=== PATIENT | female | born 1965 | race Caucasian/White ===

== ENCOUNTER 2022-12-02 17:36 | Emergency (ER) | payer OTHER, SELFPAY ==
[2022-12-02] VITALS (46 sets, daily range): BP systolic 80–115; BP diastolic 49–80; PULSE 60–112; RESP 20–31; TEMP 36.6; O2SAT 84–100; BMI 20.8
--- NOTE | 2022-12-02 17:52 | ED_ITS ---
Documented by User: Howard Hanson 12/09/22 14:04 HPI - Altered Mental Status General Chief Complaint: Altered Mental Status Stated Complaint: Altered Mental Status Time Seen by Provider: 12/02/22 17:36 Source: caregiver Mode of arrival: ambulance Limitations: altered mental status and physical limitation History of Present Illness HPI narrative: the patient was brought in by EMS from the [facility], which she had been checked and is a patient less than twenty-four hours ago. She had been at [facility] for treatment after generalized weakness and some general decline. She was admitted 11/22/2022 and subsequently discharged yesterday to halfway at the [facility]. According to the report from [facility], the patient was confused tod ay, agitated, not following commands and eventually had decreased responsiveness, moaning and reaching out with her arms. EMS was contacted and brought the patient to our emergency department. EMS rep orted the patient's blood sugar was in the 40s therefore the patient started dextrose via IV. The patient is unable to give any kind of history of present illness or review of systems, to her altered mental state. recent medical history according to the chart at [facility] shows generalized weakness and was thought to be multifactorial in the setting of subarachnoid hemorrhage and acute hypokalemia. Hypokalemia secondary to poor dietary intake and hydrochlorothiazide use. Subarachnoid hemorrhage occurred after fall in 10/27/2022 but recent imaging at [facility] showed improvement. MRI of the brain with and without contrast as well as MRA of the head was obtained at [facility] along with neurological consultation. She had unintentional weight not loss and no acute cause can be identified during her return as hospitalization. Plans are made for outpatient EGD and colonoscopy with those have yet to be obtained. She also had hyponatremia which apparently is chronic. She has history of alcohol use and there was suggestion that she may suffer from hypokalemia as a result of that. Mild hypertension is chronic with previous use of lisinopril, hydrochlorothiazide, losartan. 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 Related Data Home Medications Medication Instructions Recorded Confirmed atorvastatin 40 mg tablet 40 mg PO DAILY 12/02/22 12/02/22 ciprofloxacin HCl 500 mg tablet 500 mg PO BID 12/02/22 12/02/22 esomeprazole magnesium 40 mg 40 mg PO DAILY 12/02/22 12/02/22 granules delayed release for susp (Nexium Packet) levothyroxine 150 mcg capsule 150 mcg PO DAILY 12/02/22 12/02/22 lisinopril 40 mg tablet 40 mg PO DAILY 12/02/22 12/02/22 losartan 100 1 tab PO DAILY 12/02/22 12/02/22 mg-hydrochlorothiazide 25 mg tablet metformin 500 mg 24 hr 500 mg PO DAILY 12/02/22 12/02/22 tablet,extended release ondansetron HCl 8 mg tablet 8 mg PO .EVERY 6 HR 12/02/22 12/02/22 potassium chloride 10 mEq 10 meq PO BID 12/02/22 12/02/22 capsule,extended release potassium chloride 20 mEq 40 meq PO BID 12/02/22 12/02/22 tablet,extended release rosuvastatin 20 mg tablet 20 mg PO DAILY 12/02/22 12/02/22 venlafaxine 225 mg tablet,extended 225 mg PO DAILY 12/02/22 12/02/22 release 24 hr Allergies Allergy/AdvReac Type Severity Reaction Status Date / Time Penicillins Allergy Severe Verified 12/02/22 18:13 Sulfa (Sulfonamide Allergy Severe Verified 12/02/22 18:13 Antibiotics) [facility] Medical History (Updated 12/02/22 @ 23:22 by Blayne Romeo MD) Alcohol abuse ?F10.10 - Alcohol abuse, uncomplicated (ICD-10) Amnesia ?R41.3 - Other amnesia (ICD-10) Asthma ?J45.909 - Unspecified asthma, uncomplicated (ICD-10) Dysuria ?R30.0 - Dysuria (ICD-10) GERD (gastroesophageal reflux disease) ?K21.9 - Gastro-esophageal reflux disease without esophagitis (ICD-10) 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, not elsewhere classified (ICD-10) ?K06.1 - Gingival enlargement (ICD-10) ?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, unspecified (ICD-10) Hyperlipemia ?E78.5 - Hyperlipidemia, unspecified (ICD-10) Hypersomnia ?G47.10 - Hypersomnia, unspecified (ICD-10) Hypertension ?I10 - Essential (primary) hypertension (ICD-10) Hypothyroid ?E03.9 - Hypothyroidism, unspecified (ICD-10) Iron deficiency anemia ?D50.9 - Iron deficiency anemia, unspecified (ICD-10) Loss of consciousness ?R40.20 - Unspecified coma (ICD-10) Major depress dis, severe ?F32.2 - Major depressive disorder, single episode, severe without psychotic features (ICD-10) Nausea ?R11.0 - Nausea (ICD-10) Nicotine dependence ?F17.200 - Nicotine dependence, unspecified, uncomplicated (ICD-10) Obesity ?E66.9 - Obesity, unspecified (ICD-10) Obstructive sleep apnea ?G47.33 - Obstructive sleep apnea (adult) (pediatric) (ICD-10) Postoperative malabsorption ?K91.2 - Postsurgical malabsorption, not elsewhere classified (ICD-10) Prediabetes ?R73.03 - Prediabetes (ICD-10) Traumatic subarachnoid hemorrhage ?S06.6XAA - Traumatic subarachnoid hemorrhage with loss of consciousness status unknown, initial encounter (ICD-10) Weakness ?R53.1 - Weakness (ICD-10) Exam Narrative Exam Narrative: Nurses notes and vital signs reviewed and patient is not hypoxic. afebrile General: Ill-appearing and mildly distressed, moaning. Skin: Warm, dry, no pallor noted. scabbed area of the right upper chest. Ecchymosis in other areas of the chest. Head: Normocephalic, atraumatic. Neck: Supple, non-tender. Eye: Pupils are equal, round and EOMI. No scleral icterus. Ears, Nose, Mouth, and Throat: Oral mucosa is dry Cardiovascular: borderline bradycardia, sinus, without murmur, gallop or rub. Respiratory: No accessory muscle use or respiratory distress. Lungs are clear to auscultation, no wheezing, rales or rhonchi Chest Wall: right upper anterior chest wall abrasion as detailed above. Back: No midline thoracic or lumbar vertebral tenderness or ecchymosis. Musculoskeletal: no sign of long bone fracture. No pain with hip or pelvic palpation. No lower extremity edema/swelling GI: Abdomen is soft, non-distended. Normal bowel sounds. No masses appreciated. No reaction to palpation of the abdomen. No guarding, or rigidity noted. Neurological: Keeps eyes closed. Moans and cries. Does not answer questions or follow commands. Moves all extremities spontaneously. Sensation intact. Psychiatric: non-interactive. Constitutional Vital Signs, click to edit/add: Last Vital Signs Temp 97.9 F 12/02/22 18:06 Pulse 92 H 12/03/22 00:10 Resp 29 H 12/03/22 00:10 BP 97/71 12/03/22 00:01 Pulse Ox 96 12/03/22 00:14 O2 Del Method Room Air 12/02/22 18:05 Course Vital Signs Vital signs: Vital Signs Pulse Rate 60 12/02/22 17:38 Respiratory Rate 26 H 12/02/22 17:38 Blood Pressure 89/65 12/02/22 17:38 Pulse Oximetry 98 12/02/22 17:38 Oxygen Delivery Method Room Air 12/02/22 17:38 Temperature 97.9 F 12/02/22 18:06 Pulse Rate 92 H 12/03/22 00:10 Respiratory Rate 29 H 12/03/22 00:10 Blood Pressure 97/71 12/03/22 00:01 Pulse Oximetry 96 12/03/22 00:14 Oxygen Delivery Method Room Air 12/02/22 18:05 MDM - Altered Mental Status Lab Data Labs: Lab Results 12/02/22 12/02/22 12/02/22 Range/Units 17:53 18:15 18:19 WBC 8.3 (4.0-11.0) 10^3/uL RBC 2.33 L (4.20-5.40) 10^6/uL Hgb 7.8 L (12.0-16.0) g/dL Hct 24.3 L (36.0-48.0) % MCV 104.3 H (81.0-99.0) fL MCH 33.5 (26.7-34.0) pg MCHC 32.1 (29.9-35.2) g/dL RDW 20.9 H (11.0-15.0) % Plt Count 142 L (150-450) 10^3/uL MPV 11.4 (9.5-13.5) fL Neut % (Auto) 83.5 H (43.0-75.0) % Lymph % (Auto) 9.5 L (20.5-60.0) % [place] % (Auto) 4.9 (1.7-12.0) % Eos % (Auto) 0.1 L (0.9-7.0) % Baso % (Auto) 0.2 (0.2-2.0) % Neut # (Auto) 6.9 H (1.4-6.5) 10^3/uL Lymph # (Auto) 0.8 L (1.2-3.8) 10^3/uL [place] # (Auto) 0.4 (0.3-0.8) 10^3/uL Eos # (Auto) 0.0 (0.0-0.7) 10^3/uL Baso # (Auto) 0.0 (0.0-0.1) 10^3/uL Abs Immat Gran (auto) 0.15 H (0.00-0.03) 10^3/uL Imm/Tot Granulo (auto) 1.8 H (0.0-0.5) % PT 16.0 H (9.0-11.6) sec INR 1.55 Sodium 131 L (136-145) mmol/L Potassium 6.3 H* (3.5-5.1) mmol/L Chloride 103 (98-107) mmol/L Carbon Dioxide 19.9 L (21.0-32.0) mmol/L Anion Gap 14.4 BUN 17.0 (7.0-18.0) mg/dL Creatinine 3.94 H (0.55-1.02) mg/dL Est GFR ( Amer) 14 L (>=60) Est GFR (Non-Af Amer) 12 L (>=60) BUN/Creatinine Ratio 4.3 Glucose 279 H (74-106) mg/dL Lactate 4.0 H* (0.4-2.0) mmol/L Calcium 7.5 L (8.5-10.1) mg/dL Magnesium 1.7 L (1.8-2.4) mg/dL Total Bilirubin 3.7 H (0.2-1.0) mg/dL AST 331 H (15-37) U/L ALT 134 H (14-59) U/L Alkaline Phosphatase 277 H (46-116) U/L Ammonia 43 H* (11-32) umol/L Total Protein 4.0 L (6.4-8.2) g/dL Albumin 1.3 L (3.4-5.0) g/dL Globulin 2.7 g/dL Albumin/Globulin Ratio 0.5 TSH 0.230 L (0.358-3.740) uIU/mL Urine Color (YELLOW) Urine Clarity (CLEAR) Urine pH (5.0-9.0) Ur Specific [place] (1.005-1.025) Urine Protein (NEG/TRACE) mg/dL Urine Glucose (UA) (NEGATIVE) mg/dL Urine Ketones (NEGATIVE) mg/dL Urine Occult Blood (NEGATIVE) Urine Nitrite (NEGATIVE) Urine Bilirubin (NEGATIVE) Urine Urobilinogen (0.2-1.0) EU/dL Ur Leukocyte Esterase (NEGATIVE) Urine RBC (0-2) #/HPF Urine WBC (NONE SEEN) #/HPF Ur Squamous Epith Cells (NONE/RARE) #/LPF Urine Crystals (None Seen) #/HPF Amorphous Sediment Urine Bacteria (NONE SEEN) #/HPF Urine Casts (NONE SEEN) #/LPF Fatty Casts Urine Mucus (NONE SEEN) Ur Culture Indicated? Acetaminophen 4.4 L (10.0-30.0) ug/mL Acetone, Qual Negative (NEGATIVE) SARS-CoV-2 (PCR) Negative (NEGATIVE) SARS-CoV-2 RNA (BRYAN) Not detected (NOT DETECTE) POC Glucose 93 (74-106) mg/dL 12/02/22 12/02/22 Range/Units 20:25 21:11 WBC (4.0-11.0) 10^3/uL RBC (4.20-5.40) 10^6/uL Hgb (12.0-16.0) g/dL Hct (36.0-48.0) % MCV (81.0-99.0) fL MCH (26.7-34.0) pg MCHC (29.9-35.2) g/dL RDW (11.0-15.0) % Plt Count (150-450) 10^3/uL MPV (9.5-13.5) fL Neut % (Auto) (43.0-75.0) % Lymph % (Auto) (20.5-60.0) % [place] % (Auto) (1.7-12.0) % Eos % (Auto) (0.9-7.0) % Baso % (Auto) (0.2-2.0) % Neut # (Auto) (1.4-6.5) 10^3/uL Lymph # (Auto) (1.2-3.8) 10^3/uL [place] # (Auto) (0.3-0.8) 10^3/uL Eos # (Auto) (0.0-0.7) 10^3/uL Baso # (Auto) (0.0-0.1) 10^3/uL Abs Immat Gran (auto) (0.00-0.03) 10^3/uL Imm/Tot Granulo (auto) (0.0-0.5) % PT (9.0-11.6) sec INR Sodium 132 L (136-145) mmol/L Potassium 5.2 H (3.5-5.1) mmol/L Chloride 106 (98-107) mmol/L Carbon Dioxide 11.8 L (21.0-32.0) mmol/L Anion Gap 19.4 BUN 17.0 (7.0-18.0) mg/dL Creatinine 4.18 H (0.55-1.02) mg/dL Est GFR ( Amer) 13 L (>=60) Est GFR (Non-Af Amer) 11 L (>=60) BUN/Creatinine Ratio 4.1 Glucose 312 H (74-106) mg/dL Lactate 8.2 H* (0.4-2.0) mmol/L Calcium 7.5 L (8.5-10.1) mg/dL Magnesium (1.8-2.4) mg/dL Total Bilirubin (0.2-1.0) mg/dL AST (15-37) U/L ALT (14-59) U/L Alkaline Phosphatase (46-116) U/L Ammonia (11-32) umol/L Total Protein (6.4-8.2) g/dL Albumin (3.4-5.0) g/dL Globulin g/dL Albumin/Globulin Ratio TSH (0.358-3.740) uIU/mL Urine Color Dk. orange (YELLOW) Urine Clarity Clear (CLEAR) Urine pH 6.5 (5.0-9.0) Ur Specific [place] 1.025 (1.005-1.025) Urine Protein >=300 A (NEG/TRACE) mg/dL Urine Glucose (UA) 100 A (NEGATIVE) mg/dL Urine Ketones Trace A (NEGATIVE) mg/dL Urine Occult Blood Large A (NEGATIVE) Urine Nitrite Positive A (NEGATIVE) Urine Bilirubin Large A (NEGATIVE) Urine Urobilinogen 2.0 A (0.2-1.0) EU/dL Ur Leukocyte Esterase Trace A (NEGATIVE) Urine RBC 0-2 (0-2) #/HPF Urine WBC 5-10 A (NONE SEEN) #/HPF Ur Squamous Epith Cells Many A (NONE/RARE) #/LPF Urine Crystals Seen A (None Seen) #/HPF Amorphous Sediment Many Urine Bacteria Large A (NONE SEEN) #/HPF Urine Casts Seen A (NONE SEEN) #/LPF Fatty Casts Rare Urine Mucus Large A (NONE SEEN) Ur Culture Indicated? Yes Acetaminophen (10.0-30.0) ug/mL Acetone, Qual (NEGATIVE) SARS-CoV-2 (PCR) (NEGATIVE) SARS-CoV-2 RNA (BRYAN) (NOT DETECTE) POC Glucose (74-106) mg/dL Discharge Plan Discharge Chief Complaint: Altered Mental Status Clinical Impression: Acute kidney injury, Hepatic encephalopathy Patient Disposition: [facility] Time of Disposition Decision: 23:21 Discharge Location: [facility] Condition: Fair Mode of Transportation: EMS Discharge Date/Time: 12/03/22 00:25 Documented by User: Blayne Romeo MD 12/02/22 23:22 HPI - Altered Mental Status General Chief Complaint: Altered Mental Status Stated Complaint: Altered Mental Status Time Seen by Provider: 12/02/22 17:36 Related Data Home Medications Medication Instructions Recorded Confirmed atorvastatin 40 mg tablet 40 mg PO DAILY 12/02/22 12/02/22 ciprofloxacin HCl 500 mg tablet 500 mg PO BID 12/02/22 12/02/22 esomeprazole magnesium 40 mg 40 mg PO DAILY 12/02/22 12/02/22 granules delayed release for susp (Nexium Packet) levothyroxine 150 mcg capsule 150 mcg PO DAILY 12/02/22 12/02/22 lisinopril 40 mg tablet 40 mg PO DAILY 12/02/22 12/02/22 losartan 100 1 tab PO DAILY 12/02/22 12/02/22 mg-hydrochlorothiazide 25 mg tablet metformin 500 mg 24 hr 500 mg PO DAILY 12/02/22 12/02/22 tablet,extended release ondansetron HCl 8 mg tablet 8 mg PO .EVERY 6 HR 12/02/22 12/02/22 potassium chloride 10 mEq 10 meq PO BID 12/02/22 12/02/22 capsule,extended release potassium chloride 20 mEq 40 meq PO BID 12/02/22 12/02/22 tablet,extended release rosuvastatin 20 mg tablet 20 mg PO DAILY 12/02/22 12/02/22 venlafaxine 225 mg tablet,extended 225 mg PO DAILY 12/02/22 12/02/22 release 24 hr Allergies Allergy/AdvReac Type Severity Reaction Status Date / Time Penicillins Allergy Severe Verified 12/02/22 18:13 Sulfa (Sulfonamide Allergy Severe Verified 12/02/22 18:13 Antibiotics) [facility] Medical History (Updated 12/02/22 @ 23:22 by Blayne Romeo MD) Alcohol abuse ?F10.10 - Alcohol abuse, uncomplicated (ICD-10) Amnesia ?R41.3 - Other amnesia (ICD-10) Asthma ?J45.909 - Unspecified asthma, uncomplicated (ICD-10) Dysuria ?R30.0 - Dysuria (ICD-10) GERD (gastroesophageal reflux disease) ?K21.9 - Gastro-esophageal reflux disease without esophagitis (ICD-10) 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, not elsewhere classified (ICD-10) ?K06.1 - Gingival enlargement (ICD-10) ?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, unspecified (ICD-10) Hyperlipemia ?E78.5 - Hyperlipidemia, unspecified (ICD-10) Hypersomnia ?G47.10 - Hypersomnia, unspecified (ICD-10) Hypertension ?I10 - Essential (primary) hypertension (ICD-10) Hypothyroid ?E03.9 - Hypothyroidism, unspecified (ICD-10) Iron deficiency anemia ?D50.9 - Iron deficiency anemia, unspecified (ICD-10) Loss of consciousness ?R40.20 - Unspecified coma (ICD-10) Major depress dis, severe ?F32.2 - Major depressive disorder, single episode, severe without psychotic features (ICD-10) Nausea ?R11.0 - Nausea (ICD-10) Nicotine dependence ?F17.200 - Nicotine dependence, unspecified, uncomplicated (ICD-10) Obesity ?E66.9 - Obesity, unspecified (ICD-10) Obstructive sleep apnea ?G47.33 - Obstructive sleep apnea (adult) (pediatric) (ICD-10) Postoperative malabsorption ?K91.2 - Postsurgical malabsorption, not elsewhere classified (ICD-10) Prediabetes ?R73.03 - Prediabetes (ICD-10) Traumatic subarachnoid hemorrhage ?S06.6XAA - Traumatic subarachnoid hemorrhage with loss of consciousness status unknown, initial encounter (ICD-10) Weakness ?R53.1 - Weakness (ICD-10) Exam Constitutional Vital Signs, click to edit/add: Last Vital Signs Temp 97.9 F 12/02/22 18:06 Pulse 92 H 12/03/22 00:10 Resp 29 H 12/03/22 00:10 BP 97/71 12/03/22 00:01 Pulse Ox 96 12/03/22 00:14 O2 Del Method Room Air 12/02/22 18:05 Course Vital Signs Vital signs: Vital Signs Pulse Rate 60 12/02/22 17:38 Respiratory Rate 26 H 12/02/22 17:38 Blood Pressure 89/65 12/02/22 17:38 Pulse Oximetry 98 12/02/22 17:38 Oxygen Delivery Method Room Air 12/02/22 17:38 Temperature 97.9 F 12/02/22 18:06 Pulse Rate 92 H 12/03/22 00:10 Respiratory Rate 29 H 12/03/22 00:10 Blood Pressure 97/71 12/03/22 00:01 Pulse Oximetry 96 12/03/22 00:14 Oxygen Delivery Method Room Air 12/02/22 18:05 MDM - Altered Mental Status MDM Narrative Medical decision making narrative: JK 11:20 pm her workup shows a significantly elevated creatinine. Her ammonia level is in the mid 40s. CAT scan shows no bleed and chest x-ray shows no infiltrate. She's had minimal urine output and is covered with IV Rocephin here. I've spoken to admitting service at [facility] and the patient is accepted there and is being transported there tonight. She is hemodynamically stable and family is agreeable for transfer. Differential Diagnosis Differential diagnosis: Likely altered mental status, hypoglycemia, subarachnoid hemorrhage and OTHER (hepatic encephalopathy, urinary tract infection) Lab Data Attestation: I reviewed the patient's lab results. Labs: Lab Results 12/02/22 12/02/22 12/02/22 Range/Units 17:53 18:15 18:19 WBC 8.3 (4.0-11.0) 10^3/uL RBC 2.33 L (4.20-5.40) 10^6/uL Hgb 7.8 L (12.0-16.0) g/dL Hct 24.3 L (36.0-48.0) % MCV 104.3 H (81.0-99.0) fL MCH 33.5 (26.7-34.0) pg MCHC 32.1 (29.9-35.2) g/dL RDW 20.9 H (11.0-15.0) % Plt Count 142 L (150-450) 10^3/uL MPV 11.4 (9.5-13.5) fL Neut % (Auto) 83.5 H (43.0-75.0) % Lymph % (Auto) 9.5 L (20.5-60.0) % [place] % (Auto) 4.9 (1.7-12.0) % Eos % (Auto) 0.1 L (0.9-7.0) % Baso % (Auto) 0.2 (0.2-2.0) % Neut # (Auto) 6.9 H (1.4-6.5) 10^3/uL Lymph # (Auto) 0.8 L (1.2-3.8) 10^3/uL [place] # (Auto) 0.4 (0.3-0.8) 10^3/uL Eos # (Auto) 0.0 (0.0-0.7) 10^3/uL Baso # (Auto) 0.0 (0.0-0.1) 10^3/uL Abs Immat Gran (auto) 0.15 H (0.00-0.03) 10^3/uL Imm/Tot Granulo (auto) 1.8 H (0.0-0.5) % PT 16.0 H (9.0-11.6) sec INR 1.55 Sodium 131 L (136-145) mmol/L Potassium 6.3 H* (3.5-5.1) mmol/L Chloride 103 (98-107) mmol/L Carbon Dioxide 19.9 L (21.0-32.0) mmol/L Anion Gap 14.4 BUN 17.0 (7.0-18.0) mg/dL Creatinine 3.94 H (0.55-1.02) mg/dL Est GFR ( Amer) 14 L (>=60) Est GFR (Non-Af Amer) 12 L (>=60) BUN/Creatinine Ratio 4.3 Glucose 279 H (74-106) mg/dL Lactate 4.0 H* (0.4-2.0) mmol/L Calcium 7.5 L (8.5-10.1) mg/dL Magnesium 1.7 L (1.8-2.4) mg/dL Total Bilirubin 3.7 H (0.2-1.0) mg/dL AST 331 H (15-37) U/L ALT 134 H (14-59) U/L Alkaline Phosphatase 277 H (46-116) U/L Ammonia 43 H* (11-32) umol/L Total Protein 4.0 L (6.4-8.2) g/dL Albumin 1.3 L (3.4-5.0) g/dL Globulin 2.7 g/dL Albumin/Globulin Ratio 0.5 TSH 0.230 L (0.358-3.740) uIU/mL Urine Color (YELLOW) Urine Clarity (CLEAR) Urine pH (5.0-9.0) Ur Specific [place] (1.005-1.025) Urine Protein (NEG/TRACE) mg/dL Urine Glucose (UA) (NEGATIVE) mg/dL Urine Ketones (NEGATIVE) mg/dL Urine Occult Blood (NEGATIVE) Urine Nitrite (NEGATIVE) Urine Bilirubin (NEGATIVE) Urine Urobilinogen (0.2-1.0) EU/dL Ur Leukocyte Esterase (NEGATIVE) Urine RBC (0-2) #/HPF Urine WBC (NONE SEEN) #/HPF Ur Squamous Epith Cells (NONE/RARE) #/LPF Urine Crystals (None Seen) #/HPF Amorphous Sediment Urine Bacteria (NONE SEEN) #/HPF Urine Casts (NONE SEEN) #/LPF Fatty Casts Urine Mucus (NONE SEEN) Ur Culture Indicated? Acetaminophen 4.4 L (10.0-30.0) ug/mL Acetone, Qual Negative (NEGATIVE) SARS-CoV-2 (PCR) Negative (NEGATIVE) SARS-CoV-2 RNA (BRYAN) Not detected (NOT DETECTE) POC Glucose 93 (74-106) mg/dL 12/02/22 12/02/22 Range/Units 20:25 21:11 WBC (4.0-11.0) 10^3/uL RBC (4.20-5.40) 10^6/uL Hgb (12.0-16.0) g/dL Hct (36.0-48.0) % MCV (81.0-99.0) fL MCH (26.7-34.0) pg MCHC (29.9-35.2) g/dL RDW (11.0-15.0) % Plt Count (150-450) 10^3/uL MPV (9.5-13.5) fL Neut % (Auto) (43.0-75.0) % Lymph % (Auto) (20.5-60.0) % [place] % (Auto) (1.7-12.0) % Eos % (Auto) (0.9-7.0) % Baso % (Auto) (0.2-2.0) % Neut # (Auto) (1.4-6.5) 10^3/uL Lymph # (Auto) (1.2-3.8) 10^3/uL [place] # (Auto) (0.3-0.8) 10^3/uL Eos # (Auto) (0.0-0.7) 10^3/uL Baso # (Auto) (0.0-0.1) 10^3/uL Abs Immat Gran (auto) (0.00-0.03) 10^3/uL Imm/Tot Granulo (auto) (0.0-0.5) % PT (9.0-11.6) sec INR Sodium 132 L (136-145) mmol/L Potassium 5.2 H (3.5-5.1) mmol/L Chloride 106 (98-107) mmol/L Carbon Dioxide 11.8 L (21.0-32.0) mmol/L Anion Gap 19.4 BUN 17.0 (7.0-18.0) mg/dL Creatinine 4.18 H (0.55-1.02) mg/dL Est GFR ( Amer) 13 L (>=60) Est GFR (Non-Af Amer) 11 L (>=60) BUN/Creatinine Ratio 4.1 Glucose 312 H (74-106) mg/dL Lactate 8.2 H* (0.4-2.0) mmol/L Calcium 7.5 L (8.5-10.1) mg/dL Magnesium (1.8-2.4) mg/dL Total Bilirubin (0.2-1.0) mg/dL AST (15-37) U/L ALT (14-59) U/L Alkaline Phosphatase (46-116) U/L Ammonia (11-32) umol/L Total Protein (6.4-8.2) g/dL Albumin (3.4-5.0) g/dL Globulin g/dL Albumin/Globulin Ratio TSH (0.358-3.740) uIU/mL Urine Color Dk. orange (YELLOW) Urine Clarity Clear (CLEAR) Urine pH 6.5 (5.0-9.0) Ur Specific [place] 1.025 (1.005-1.025) Urine Protein >=300 A (NEG/TRACE) mg/dL Urine Glucose (UA) 100 A (NEGATIVE) mg/dL Urine Ketones Trace A (NEGATIVE) mg/dL Urine Occult Blood Large A (NEGATIVE) Urine Nitrite Positive A (NEGATIVE) Urine Bilirubin Large A (NEGATIVE) Urine Urobilinogen 2.0 A (0.2-1.0) EU/dL Ur Leukocyte Esterase Trace A (NEGATIVE) Urine RBC 0-2 (0-2) #/HPF Urine WBC 5-10 A (NONE SEEN) #/HPF Ur Squamous Epith Cells Many A (NONE/RARE) #/LPF Urine Crystals Seen A (None Seen) #/HPF Amorphous Sediment Many Urine Bacteria Large A (NONE SEEN) #/HPF Urine Casts Seen A (NONE SEEN) #/LPF Fatty Casts Rare Urine Mucus Large A (NONE SEEN) Ur Culture Indicated? Yes Acetaminophen (10.0-30.0) ug/mL Acetone, Qual (NEGATIVE) SARS-CoV-2 (PCR) (NEGATIVE) SARS-CoV-2 RNA (BRYAN) (NOT DETECTE) POC Glucose (74-106) mg/dL Imaging Data chest x-ray, CT brain: Radiologist's impression: Procedure: CT head/brain wo con CLINICAL HISTORY: Altered mentation, hx subarachnoid hemorrhage. EXAMINATION: Unenhanced CT scan of the brain: 12/02/2022. COMPARISON: None. TECHNIQUE: 3 mm axial images from skull base through vertex without intravenous contrast were obtained. Sagittal and coronal reconstructions were also performed. FINDINGS: The ventricles, sulcal, cisternal spaces seem minimally prominent. However, there is no mass, mass effect, or midline shift. There are mild to moderate chronic microvascular ischemic changes surrounding the ventricles. There is no acute infarct. There is no intra- or extra-axial hemorrhage. There is no mass, mass effect, or midline shift. The visualized intraorbital contents, paranasal sinuses, mastoid air cells appear normal. IMPRESSION: 1. No acute infarct, hemorrhage, or acute intracranial process to explain patient's symptoms. 2. Mild atrophic, mild to moderate chronic microvascular ischemic changes. Electronically authenticated by: ALINA LLANOS Date: 12/02/2022 19: Procedure: XR chest 1V EXAMINATION: XR chest 1V HISTORY: Altered mental status COMPARISON: None. TECHNIQUE: Portable chest FINDINGS: The lung parenchyma is free of consolidation or infiltrate. No pneumothorax or pleural effusion. The cardiac, mediastinal and hilar contours are normal. The visualized osseous structures exhibit no gross abnormality. IMPRESSION: No acute cardiopulmonary abnormality. Electronically authenticated by: FROILAN MATTHEW Date: 12/02/2022 18:53 Discharge Plan Discharge Chief Complaint: Altered Mental Status Clinical Impression: Acute kidney injury, Hepatic encephalopathy Patient Disposition: [facility] Time of Disposition Decision: 23:21 Discharge Location: [facility] Condition: Fair Mode of Transportation: EMS Discharge Date/Time: 12/03/22 00:25
--- NOTE | 2022-12-02 17:52 | CT_ITS ---
The [address] [address] [id number] date: 1965 Sex: F Assigned Patient Location: ER Current Patient Location: ER Accession/Order Number: [id number] Exam Date: 12/02/2022 18:25 Report Date: 12/02/2022 19:59 At the request of: TORO BRIGGS Procedure: CT head/brain wo con CLINICAL HISTORY: Altered mentation, hx subarachnoid hemorrhage. EXAMINATION: Unenhanced CT scan of the brain: 12/02/2022. COMPARISON: None. TECHNIQUE: 3 mm axial images from skull base through vertex without intravenous contrast were obtained. Sagittal and coronal reconstructions were also performed. FINDINGS: The ventricles, sulcal, cisternal spaces seem minimally prominent. However, there is no mass, mass effect, or midline shift. There are mild to moderate chronic microvascular ischemic changes surrounding the ventricles. There is no acute infarct. There is no intra- or extra-axial hemorrhage. There is no mass, mass effect, or midline shift. The visualized intraorbital contents, paranasal sinuses, mastoid air cells appear normal. CT/CT head/brain wo con IMPRESSION: 1. No acute infarct, hemorrhage, or acute intracranial process to explain patient's symptoms. 2. Mild atrophic, mild to moderate chronic microvascular ischemic changes. Electronically authenticated by: ALINA LLANOS Date: 12/02/2022 19:59
[2022-12-02 17:54] LABS: Glucometer 93 mg/dL (74-106)
--- NOTE | 2022-12-02 17:57 | XR_ITS ---
The [address] [address] Patient Name: TERRI HOWELL MRN: [id number] date: 1965 Sex: F Assigned Patient Location: ER Current Patient Location: ER Accession/Order Number: [id number] Exam Date: 12/02/2022 18:25 Report Date: 12/02/2022 18:53 At the request of: TORO BRIGGS Procedure: XR chest 1V EXAMINATION: XR chest 1V HISTORY: Altered mental status COMPARISON: None. TECHNIQUE: Portable chest FINDINGS: The lung parenchyma is free of consolidation or infiltrate. No pneumothorax or pleural effusion. The cardiac, mediastinal and hilar contours are normal. The visualized osseous structures exhibit no gross abnormality. XR/XR chest 1V IMPRESSION: No acute cardiopulmonary abnormality. Electronically authenticated by: FROILAN MATTHEW Date: 12/02/2022 18:53
--- NOTE | 2022-12-02 18:34 | PC.NURSE ---
To CT at this time.
[2022-12-02 18:36] LABS: Basophils Percent Auto 0.2 % (0.2-2.0); Eosinophils Percent Auto 0.1 % (0.9-7.0); Hematocrit 24.3 % (36.0-48.0); Hemoglobin 7.8 g/dL (12.0-16.0); Immature Granulocytes Abs Auto 0.15 10^3/uL (0.00-0.03); Immature Granulocytes Pct Auto 1.8 % (0.0-0.5); Lymphocytes Absolute Auto 0.8 10^3/uL (1.2-3.8); Lymphocytes Percent Auto 9.5 % (20.5-60.0); Mean Corpuscular HGB Conc 32.1 g/dL (29.9-35.2); Mean Corpuscular Hemoglobin 33.5 pg (26.7-34.0); Mean Corpuscular Volume 104.3 fL (81.0-99.0); Mean Platelet Volume 11.4 fL (9.5-13.5); Monocytes Absolute Auto 0.4 10^3/uL (0.3-0.8); Monocytes Percent Auto 4.9 % (1.7-12.0); Neutrophils Absolute Auto 6.9 10^3/uL (1.4-6.5); Neutrophils Percent Auto 83.5 % (43.0-75.0); Platelet Count 142 10^3/uL (150-450); Red Blood Count 2.33 10^6/uL (4.20-5.40); Red Cell Distribution Width 20.9 % (11.0-15.0); White Blood Count 8.3 10^3/uL (4.0-11.0)
--- NOTE | 2022-12-02 18:37 | PC.NURSE ---
Returns form CT at this time.
[2022-12-02] MEDS: MULTIVIT INFUSN,ADULT 4,VIT K 10 ML, FOLIC ACID 1 MG, THIAMINE HCL 100 MG in DEXTROSE 5... 1000 ML IV (18:41)
[2022-12-02 18:51] LABS: Acetone NEGATIVE (NEGATIVE)
--- NOTE | 2022-12-02 18:51 | PC.NURSE ---
Mother and Father at bedside and updated on condition.
[2022-12-02 18:54] LABS: SARS-CoV-2 Ag NEGATIVE (NEGATIVE)
[2022-12-02 19:04] LABS: Acetaminophen 4.4 ug/mL (10.0-30.0); Alanine Aminotransferase 134 U/L (14-59); Albumin Globulin Ratio 0.5; Albumin Level 1.3 g/dL (3.4-5.0); Alkaline Phosphatase 277 U/L (46-116); Anion Gap 14.4; Aspartate Amino Transferase 331 U/L (15-37); BUN Creatinine Ratio 4.3; Bilirubin Total 3.7 mg/dL (0.2-1.0); Calcium 7.5 mg/dL (8.5-10.1); Carbon Dioxide 19.9 mmol/L (21.0-32.0); Chloride 103 mmol/L (98-107); Estimated GFR (African America 14 (>=60); Estimated GFR (Non-African Ame 12 (>=60); Globulin 2.7 g/dL; Glucose 279 mg/dL (74-106); Magnesium 1.7 mg/dL (1.8-2.4); Sodium 131 mmol/L (136-145)
[2022-12-02 19:06] LABS: Ammonia 43 umol/L (11-32); Potassium 6.3 mmol/L (3.5-5.1)
[2022-12-02 19:15] LABS: INR 1.55
[2022-12-02] MEDS: DEXTROSE 50 %-WATER 25 GM/50 ML SYRINGE IV (19:52)
[2022-12-02] MEDS: INSULIN REGULAR 300 UNITS/3 ML 10 UNIT IV (19:52)
[2022-12-02] MEDS: 0.9 % SODIUM CHLORIDE 1,000 ML 200 ML IV (20:05)
[2022-12-02] MEDS: CEFTRIAXONE 1,000 MG in 0.9 % SODIUM CHLORIDE 50 ML 100 MG IV (20:26)
[2022-12-02 20:38] LABS: Bilirubin Urine LARGE (NEGATIVE); Blood Urine LARGE (NEGATIVE); Clarity Urine CLEAR (CLEAR); Color Urine DK. ORANGE (YELLOW); Glucose Urine UA 100 mg/dL (NEGATIVE); Ketones Urine TRACE mg/dL (NEGATIVE); Leukocyte Esterase Urine TRACE (NEGATIVE); Nitrite Urine POSITIVE (NEGATIVE); Protein Urine >=300 mg/dL (NEG/TRACE); Specific Gravity Urine 1.025 (1.005-1.025); Urine Microscopic Indicated YES; pH Urine 6.5 (5.0-9.0)
[2022-12-02 20:48] LABS: Amorphous Sediment Urine MANY; Bacteria Urine LARGE #/HPF (NONE SEEN); Cast Seen? SEEN #/LPF (NONE SEEN); Crystals Seen? Seen #/HPF (None Seen); Fatty Casts Urine RARE; Mucus Urine LARGE (NONE SEEN); RBC Urine 0-2 #/HPF (0-2); Squamous Epithelial Cell Urine MANY #/LPF (NONE/RARE)
[2022-12-02 20:49] LABS: Urine Culture Indicated YES
[2022-12-02 21:44] LABS: Anion Gap 19.4; BUN Creatinine Ratio 4.1; Calcium 7.5 mg/dL (8.5-10.1); Carbon Dioxide 11.8 mmol/L (21.0-32.0); Chloride 106 mmol/L (98-107); Estimated GFR (African America 13 (>=60); Estimated GFR (Non-African Ame 11 (>=60); Glucose 312 mg/dL (74-106); Potassium 5.2 mmol/L (3.5-5.1); Sodium 132 mmol/L (136-145)
[2022-12-02 21:53] LABS: Lactate/Lactic Acid 8.2 mmol/L (0.4-2.0)
--- NOTE | 2022-12-02 23:52 | ECG_ITS ---
The [facility] Test Date: 2022-12-02 Pat Name: TERRI BARAJAS Department: Room: - Gender: Female Resident Assistant: : 1965 Requested By: [id number] Order Number: [id number] Reading MD: MERCY TORRES Measurements Intervals [place] Rate: 92 P: 49 DE: 152 QRS: 67 QRSD: 94 T: 55 QT: 358 QTc: 407 Interpretive Statements 1100 Sinus rhythm 1470 with occasional supraventricular premature complexes 9140 abnormal rhythm ECG No previous ECG available for comparison Electronically Signed On 12-04-2022 7:00:01 EDT by MERCY TORRES
[2022-12-03] VITALS: PULSE 92; RESP 34
[2022-12-03 00:01] VITALS: BP 97/71; PULSE 93; RESP 24
[2022-12-03 00:10] VITALS: PULSE 92; RESP 29; O2SAT 89
[2022-12-03 00:14] VITALS: O2SAT 96
[2022-12-04 10:16] LABS: SARS-CoV-2 NAA NOT DETECTED (NOT DETECTE)
== END 2022-12-03 00:25 | disposition short-term general hospital (02) ==
PROVIDERS: Emergency Medicine; Emergency Provider Emergency Medicine
DX: N17.9 Acute kidney failure, unspecified (principal); K76.82 Hepatic encephalopathy; F10.10 Alcohol abuse, uncomplicated; J45.909 Unspecified asthma, uncomplicated; K21.9 Gastro-esophageal reflux disease without esophagitis; Q87.89 Other specified congenital malformation syndromes, not elsewhere classified; Q18.9 Congenital malformation of face and neck, unspecified; E78.5 Hyperlipidemia, unspecified; I10 Essential (primary) hypertension; E03.9 Hypothyroidism, unspecified; F17.210 Nicotine dependence, cigarettes, uncomplicated; F32.2 Major depressive disorder, single episode, severe without psychotic features; G47.10 Hypersomnia, unspecified; G47.33 Obstructive sleep apnea (adult) (pediatric); K91.2 Postsurgical malabsorption, not elsewhere classified; R73.03 Prediabetes; K70.30 Alcoholic cirrhosis of liver without ascites; Z20.822 Contact with and (suspected) exposure to COVID-19; Z79.84 Long term (current) use of oral hypoglycemic drugs; Z79.899 Other long term (current) drug therapy
CPT/HCPCS: 36415; 70450; 71045; 80048; 80053; 80329; 81001; 82009; 82140; 83605; 83735; 84443; 85025; 85610; 87040; 87086; 87635; 87811; 93005; 96365; 96367; 99285; U0003